=== PATIENT | female | born 1990 | race African-American/Black ===

== ENCOUNTER 2017-03-12 09:15 | Emergency (ER) | payer MEDICAID ==
[~2017-03-12] VITALS: Ht 167.6 cm; Wt 152.0 kg
[2017-03-12 09:42] LABS: APPEARANCE,URINE SLIGHTLY CLOUDY; BILIRUBIN, URINE NEGATIVE (NEGATIVE); COLOR,URINE PALE YELLOW; GLUCOSE, URINE (UA) NEGATIVE (NEGATIVE); KETONES,URINE NEGATIVE (NEGATIVE); LEUKOCYTE ESTERASE ,URINE 1+ (NEGATIVE); NITRITE,URINE NEGATIVE (NEGATIVE); PH,URINE 8 (4.5-8.0); PROTEIN,URINE NEGATIVE (NEGATIVE); UROBILINOGEN,URINE NORMAL MG/DL (0.0-1.0)
[2017-03-12 09:51] VITALS: BP 154/90
[2017-03-12] MEDS ORDERED: Lidocaine 1% MPF 10mg/ml 5ml INJ ONE (10:00)
[2017-03-12] MEDS ORDERED: Azithromycin 250mg tab ORAL ONE (10:00)
[2017-03-12] MEDS ORDERED: NITROFURANTOIN100 M2 ORAL (10:25)
[2017-03-12 10:35] VITALS: BP 154/90
--- NOTE | 2017-03-12 13:04 | Emergency Room Report ---
History of Present Illness General Chief Complaint: Female Urogenital Problems Source: Patient Present Illness HPI 26-year-old female, no significant past medical history, presenting with 2-3 days of vaginal discomfort States she has had tingling sensation, not estolate dysuria or hematuria. Denies vaginal discharge. States that she is monogamous with one partner and does not use protection. No history of STD in the past. No fever no chills no nausea vomiting Allergies: Coded Allergies: No Known Allergies (Unverified , 03/12/17) Patient History Past Medical History: see triage record Past Surgical History: none Pertinent Family History: none Last Menstrual Period: no period over months Reviewed Nursing Documentation: PMH: Agreed, PSxH: Agreed Nursing Documentation-PMH Past Medical History: No Stated History Review of Systems All Other Systems: negative except mentioned in HPI Physical Exam Vital Signs Date Time Temp Pulse Resp B/P (MAP) Pulse Ox O2 Delivery O2 Flow Rate FiO2 03/12/17 09:21 97.9 77 18 154/90 96 Room Air Sp02 EP Interpretation: reviewed, normal General Appearance: normal inspection, well appearing, no apparent distress, alert, GCS 15, non-toxic Head: normocephalic, atraumatic Eyes: bilateral eye normal inspection, bilateral eye PERRL, bilateral eye EOMI ENT: normal ENT inspection, normal pharynx, normal voice, moist mucus membranes Neck: normal inspection, full range of motion, supple Respiratory: normal inspection, lungs clear, normal breath sounds, no respiratory distress, no retraction, no wheezing, speaking full sentences, chest symmetrical Cardiovascular #1: normal inspection, regular rate, rhythm, no edema, normal capillary refill Cardiovascular #2: 2+ radial (R), 2+ radial (L) Gastrointestinal: normal inspection, non tender, soft, non-distended, no guarding Genitourinary: other - thin whtie vaginal DC, no thick DC. slightly erythamteous cervix. no cmt no adnexal tenderness Musculoskeletal: normal inspection, back normal, normal range of motion, non- tender Neurologic: normal inspection, alert, oriented x3, responsive, motor strength/ tone normal, sensory intact, normal gait, speech normal Psychiatric: normal inspection, judgement/insight normal, memory normal Skin: normal inspection, normal color, no rash, warm/dry, well hydrated, normal turgor Medical Decision Making Diagnostic Impression: Primary Impression: Concern about STD in female without diagnosis Additional Impression: UTI (urinary tract infection) ER Course [ ] yo F with dysuria DDX: UTI / cystitis vs. pyelo vs STD Plan: UA, UCX 26-year-old female with vaginal discomfort/tingling UTI/STD Plan UA urine culture ER course: Pt remains stable/nontoxic appearing in ED. UA positive Patient also requesting prophylactic antibiotics for possible STD exposure Disposition: Patient will be discharged home with prescription of antibiotics. Strict return precautions to discussed with patient such as high fever, chills, abdominal pain, nausea or vomiting. Patient verbalized understanding. Patient instructed to follow up with primary care doctor within 3 days. Patient agrees with plan. Patient also instructed to followup with [facility] because she has never had a Pap smear Please note that this Emergency Department Report was dictated using [employer] roll packer technology software, occasionally this can lead to erroneous entry secondary to interpretation by the dictation equipment Last Vital Signs Date Time Temp Pulse Resp B/P (MAP) Pulse Ox O2 Delivery O2 Flow Rate FiO2 03/12/17 10:35 97.9 73 18 154/90 96 Room Air Disposition: HOME, SELF-CARE Condition: Improved Scripts Nitrofurantoin Monohyd/M-Cryst* (MACROBID 100 MG*) 100 Mg Capsule 100 MG ORAL EVERY 12 HOURS for 7 Days, #14 CAP 0 Refills Prov: Bautista Denton M.D. 03/12/17 Referrals: [facility],REFERRING (PCP) Patient Instructions: Urinary Tract Infection, Sexually Transmitted Disease, [id number] Bautista Denton M.D. Mar 12, 2017 13:04
== END 2017-03-12 10:30 | disposition home or self-care (01) ==
LOC: EMR 09:35
DX: N39.0 Urinary tract infection, site not specified (principal); Z20.2 Contact with and (suspected) exposure to infections with a predominantly sexual mode of transmission
CPT/HCPCS: 81001; 81025; 87086; 96372; 99284; J0696; Q0144

== ENCOUNTER 2017-04-10 11:28 | Emergency (ER) | payer MEDICAID ==
[~2017-04-10] VITALS: Ht 170.2 cm; Wt 149.7 kg
[~2017-04-10 11:28] MED LIST: NITROFURANTOIN100 M2 ORAL
[2017-04-10 11:40] VITALS: BP 152/108
--- NOTE | 2017-04-10 12:05 | Emergency Room Report ---
History of Present Illness General Chief Complaint: Upper Respiratory Illness Source: Patient Present Illness HPI 26 yo female patient presents to ER complaining of cough x2weks Reports hx of recent illness, at onset of cough had chills and generalized body aches. Denies flu-like symptoms symptoms currently. Patient reports cough was dry but has become more purulent. Patient reports taking [place] cold/flu, DayQuill, and NyQuill for relief of symptoms. Denies fever, chest pain, SOB, BLACK. Denies abdominal pain, diarrhea, constipation. LMP normal, no vaginal bleeding, no dysuria, no hematuria. Allergies: Coded Allergies: No Known Allergies (Unverified , 03/12/17) Patient History Past Medical History: see triage record Last Menstrual Period: 6 months ago Reviewed Nursing Documentation: PMH: Agreed, PSxH: Agreed Nursing Documentation-PMH Past Medical History: No Stated History Review of Systems All Other Systems: negative except mentioned in HPI Physical Exam Vital Signs Date Time Temp Pulse Resp B/P (MAP) Pulse Ox O2 Delivery O2 Flow Rate FiO2 04/10/17 11:35 98.3 78 14 152/108 97 Room Air 98.2 Sp02 EP Interpretation: reviewed, normal General Appearance: well appearing, no apparent distress, alert, GCS 15, non- toxic Head: normocephalic, atraumatic Eyes: bilateral eye normal inspection, bilateral eye PERRL ENT: hearing grossly normal, normal pharynx, normal voice, TMs + canals normal , uvula midline, moist mucus membranes, pharyngeal erythema Neck: normal inspection, full range of motion, no bony tend Respiratory: normal inspection, lungs clear, normal breath sounds, no rhonchi, no accessory muscle use, no wheezing, speaking full sentences Cardiovascular #1: regular rate, rhythm Musculoskeletal: back normal, digits/nails normal, gait/station normal, normal range of motion Neurologic: alert, oriented x3, responsive, motor strength/tone normal, sensory intact, normal gait Psychiatric: mood/affect normal Skin: no rash Lymphatic: no adenopathy Medical Decision Making PA Attestation Dr. Denton is my supervising Physician whom patient management has been discussed with. Diagnostic Impression: Primary Impression: Upper respiratory infection Additional Impression: Elevated blood pressure reading ER Course Pt presents to ED c/o cough x2 weeks. DDX considered but are not limited to influenza, viral URI, pneumonia, strep throat, rhinitis, sinusitis, otitis media. VITAL SIGNS are WNL, patient is afebrile. Patient informed that blood pressure reading elevated. Patient reports no hx of HTN or cardiovascular disease. Patient instructed to followup with primary care this week for further diagnosis and treatment. Patient reports understanding and agreement to treatment plan. Physical exam benign, lungs clear to auscultation. ORDERS: none required at this time, diagnosis is clinical ED INTERVENTIONS: none required at this time DISCHARGE: At this time pt is stable for d/c to home. Patient is resting comfortably, in no acute distress, nontoxic appearing, smiling, laughing, talking without difficulty. -Promethazine-DM for cough. Patient to take medications as instructed Will provide with patient care instructions and any necessary prescriptions. Care plan and follow-up instructions provided. Patient instructed to follow-up with primary care provider in 3 - 5 days for further treatment and referral for symptoms and elevated blood pressure reading. Patient questions asked and answered. Patient reports understanding and agreement to treatment plan. ER precautions given. Patient instructed to return to ER immediately for any new or worsening of symptoms including but not limited to increasing SOB, persistent fever. Last Vital Signs Date Time Temp Pulse Resp B/P (MAP) Pulse Ox O2 Delivery O2 Flow Rate FiO2 04/10/17 11:40 78 14 Room Air 04/10/17 11:40 98.2 152/108 97 98.2 Disposition: HOME, SELF-CARE Condition: Stable Scripts D-Methorphan Hb/Prometh Hcl* (PROMETHAZINE-DM SYRUP*) 118 Ml Syrup 5 ML ORAL Q6H Y for For Cough for 7 Days, #118 ML 0 Refills Prov: Trip Ring 04/10/17 Patient Instructions: Managing Your High Blood Pressure, Upper Respiratory Infection, Adult Additional Instructions: Followup with primary care provider in 3 -5 days for further treatment and referral. Need to followup with primary care for control of high blood pressure. Take medications as directed. Take Tylenol OTC if fever or pain symptoms return. Patient questions asked and answered. ER precautions given, patient instructed to return to ER immediately for any new or worsening of symptoms. Trip Ring Apr 10, 2017 12:05
[2017-04-10] MEDS ORDERED: PROMETHAZINE-D118 ML ORAL (12:14)
[2017-04-10 12:38] VITALS: BP 119/89
== END 2017-04-10 12:42 | disposition home or self-care (01) ==
LOC: EMR 12:11
DX: J06.9 Acute upper respiratory infection, unspecified (principal); R03.0 Elevated blood-pressure reading, without diagnosis of hypertension
CPT/HCPCS: 99283

== ENCOUNTER 2017-12-06 12:15 | Emergency (ER) | payer MEDICAID ==
[~2017-12-06] VITALS: Ht 167.6 cm; Wt 156.5 kg
[~2017-12-06 12:15] MED LIST changes: +PROMETHAZINE-D118 ML ORAL
[2017-12-06 12:22] VITALS: BP 132/78
[2017-12-06] MEDS ORDERED: Fluconazole 100mg tab ORAL ONE (12:45)
[2017-12-06 12:49] LABS: APPEARANCE,URINE CLEAR; BILIRUBIN, URINE NEGATIVE (NEGATIVE); GLUCOSE, URINE (UA) NEGATIVE (NEGATIVE); KETONES,URINE NEGATIVE (NEGATIVE); NITRITE,URINE NEGATIVE (NEGATIVE); PH,URINE 7 (4.5-8.0); PROTEIN,URINE NEGATIVE (NEGATIVE); UROBILINOGEN,URINE 1 MG/DL (0.0-1.0)
[2017-12-06 12:51] LABS: LEUKOCYTE ESTERASE ,URINE 1+ (NEGATIVE)
[2017-12-06 12:58] LABS: COLOR,URINE YELLOW
[2017-12-06] MEDS ORDERED: FLUCONAZOLE100 MG ORAL (13:03)
--- NOTE | 2017-12-06 13:03 | Emergency Room Report ---
History of Present Illness General Chief Complaint: Vaginal Source: Patient Present Illness HPI 27-year-old female presents to the emergency department complaining of thick white vaginal discharge with itching and dysuria 3 days. Patient reports that she just recently finished a course of antibiotics for bacterial vaginosis. Patient states that she had STD testing performed by her HOTEL DESK CLERK and was told she was negative. Patient denies recent unprotected intercourse. Patient denies fevers, chills, abdominal pain, nausea or vomiting. He denies swollen tender lymph nodes, joint pain or genital lesions. Pt. is requesting tx for yeast. Allergies: Coded Allergies: No Known Allergies (Unverified , 03/12/17) Patient History Past Medical History: see triage record Past Surgical History: none Pertinent Family History: none Last Menstrual Period: 1 yr ago Now: No Reviewed Nursing Documentation: PMH: Agreed; PSxH: Agreed Nursing Documentation-PMH Past Medical History: No Stated History Review of Systems All Other Systems: negative except mentioned in HPI Physical Exam Vital Signs Date Time Temp Pulse Resp B/P (MAP) Pulse Ox O2 Delivery O2 Flow Rate FiO2 12/06/17 12:22 98.2 75 18 153/99 100 Room Air Sp02 EP Interpretation: reviewed, normal General Appearance: no apparent distress, alert, GCS 15, non-toxic Head: normocephalic, atraumatic Eyes: bilateral eye normal inspection, bilateral eye PERRL ENT: hearing grossly normal, normal voice Neck: full range of motion Respiratory: lungs clear, normal breath sounds, speaking full sentences Cardiovascular #1: regular rate, rhythm Gastrointestinal: normal bowel sounds, non tender, soft Rectal: deferred Genitourinary: normal inspection, no CVA tenderness, deferred - wet mount/ pelvic deferred by pt. Musculoskeletal: back normal, gait/station normal, normal range of motion, non- tender Neurologic: alert, oriented x3, responsive, motor strength/tone normal, sensory intact, speech normal, grossly normal Psychiatric: judgement/insight normal Skin: normal color, no rash, warm/dry, well hydrated Medical Decision Making PA Attestation Dr. Zhao is my supervising Physician whom patient management has been discussed with. Diagnostic Impression: Primary Impression: Vaginitis and vulvovaginitis ER Course 27-year-old female presents to the emergency department complaining of thick white vaginal discharge with itching and dysuria 3 days. Patient reports that she just recently finished a course of antibiotics for bacterial vaginosis. Patient states that she had STD testing performed by her HOTEL DESK CLERK and was told she was negative. Patient denies recent unprotected intercourse. Patient denies fevers, chills, abdominal pain, nausea or vomiting. He denies swollen tender lymph nodes, joint pain or genital lesions. Pt. is requesting tx for yeast. Ddx considered but are not limited to UTi , Pyelo, STI, Stone, Cystitis, vaginal laceration, vaginitis. Vital signs: are WNL, pt. is afebrile H& PE are most consistent with: Vaginitis ORDERS: - UA labs are attached and are unremarkable- - Wet Mount :deferred due to recent abx use and recent wet mount and no unprotected intercourse between. ED INTERVENTIONS: -Diflucan PO DISCHARGE: At this time pt. is stable for d/c to home. Will provide printed patient care instructions, and any necessary prescriptions. Care plan and follow up instructions have been discussed with the patient prior to discharge. discussed with the patient prior to discharge. Labs Test 12/06/17 12:30 Urine Color Yellow Urine Appearance Clear Urine pH 7 (4.5-8.0) Urine Specific [place] 1.010 (1.005-1.035) Urine Protein Negative (NEGATIVE) Urine Glucose (UA) Negative (NEGATIVE) Urine Ketones Negative (NEGATIVE) Urine Blood Negative (NEGATIVE) Urine Nitrite Negative (NEGATIVE) Urine Bilirubin Negative (NEGATIVE) Urine Urobilinogen 1 MG/DL (0.0-1.0) Urine Leukocyte Esterase 1+ (NEGATIVE) Urine RBC 0 /HPF (0 - 2) Urine WBC 0-2 /HPF (0 - 2) Urine Squamous Epithelial Cells Few /LPF (NONE/OCC) Urine Bacteria Few /HPF (NONE) Last Vital Signs Date Time Temp Pulse Resp B/P (MAP) Pulse Ox O2 Delivery O2 Flow Rate FiO2 12/06/17 12:22 98.6 78 20 132/78 99 Room Air Disposition: HOME, SELF-CARE Condition: Stable Scripts Fluconazole (FLUCONAZOLE) 100 Mg Tablet 100 MG ORAL DAILY, #3 TAB 0 Refills Prov: Nelida Montgomery 12/06/17 Patient Instructions: Vaginitis, [id number] Additional Instructions: Take medications as directed. Follow up with a Primary Care Provider in 3-5 days, even if your symptoms have resolved. --Please review list of primary care clinics, if you do not already have a primary care provider Return sooner to ED if new symptoms occur, or current symptoms become worse. - Please note that this Emergency Department Report was dictated using [employer] agent technology software, occasionally this can lead to erroneous entry secondary to interpretation by the dictation equipment. Nelida Montgomery Dec 06, 2017 13:03
[2017-12-06 13:31] VITALS: BP 132/78
== END 2017-12-06 13:31 | disposition home or self-care (01) ==
LOC: EMR 13:29
DX: N76.0 Acute vaginitis (principal)
CPT/HCPCS: 81003; 99283

== ENCOUNTER 2018-01-12 19:10 | Emergency (ER) | payer MEDICAID ==
[~2018-01-12] VITALS: Ht 170.2 cm; Wt 154.2 kg
[~2018-01-12 19:10] MED LIST changes: +FLUCONAZOLE100 MG ORAL
[2018-01-12 19:40] VITALS: BP 138/90
[2018-01-12] MEDS ORDERED: NKM (19:40)
[2018-01-12 19:55] LABS: APPEARANCE,URINE CLEAR; BILIRUBIN, URINE NEGATIVE (NEGATIVE); GLUCOSE, URINE (UA) NEGATIVE (NEGATIVE); KETONES,URINE NEGATIVE (NEGATIVE); LEUKOCYTE ESTERASE ,URINE 1+ (NEGATIVE); NITRITE,URINE NEGATIVE (NEGATIVE); PH,URINE 5 (4.5-8.0); PROTEIN,URINE NEGATIVE (NEGATIVE); UROBILINOGEN,URINE 4 MG/DL (0.0-1.0)
[2018-01-12 19:58] LABS: COLOR,URINE YELLOW
[2018-01-12] MEDS ORDERED: DIFLUCAN150 MG PO (20:37)
[2018-01-12] MEDS ORDERED: METRONIDAZOLE500 MG ORAL (20:37)
--- NOTE | 2018-01-12 20:49 | Emergency Room Report ---
History of Present Illness General Chief Complaint: Vaginal Source: Patient Present Illness [facility] The patient is a 27-year-old female presenting for 3 days of white vaginal discharge. She also admits to some vaginal itching. She has had BV in the past and this feels the same. She denies any new sexual partners. She denies other symptoms including nausea, vomiting, fever, chills, back pain, abdominal pain, dysuria, hematuria Allergies: Coded Allergies: No Known Allergies (Unverified , 03/12/17) Patient History Past Medical History: see triage record Pertinent Family History: none Last Menstrual Period: 2017 Now: No - pt stated that she has an irregular period. Reviewed Nursing Documentation: PMH: Agreed; PSxH: Agreed Nursing Documentation-PMH Past Medical History: No Stated History Review of Systems All Other Systems: negative except mentioned in HPI Physical Exam Vital Signs Date Time Temp Pulse Resp B/P (MAP) Pulse Ox O2 Delivery O2 Flow Rate FiO2 01/12/18 19:35 99.3 96 16 138/90 98 Room Air Sp02 EP Interpretation: reviewed, normal General Appearance: no apparent distress, alert, GCS 15, non-toxic Head: normocephalic, atraumatic Respiratory: chest non-tender, lungs clear, normal breath sounds, speaking full sentences Cardiovascular #1: regular rate, rhythm, no edema Gastrointestinal: normal bowel sounds, non tender, soft, non-distended, no guarding, no rebound Genitourinary: normal inspection, no CVA tenderness Skin: normal color, no rash, warm/dry, well hydrated Medical Decision Making PA Attestation Dr. Pedro is my supervising physician. Patient management was discussed with my supervising physician Diagnostic Impression: Primary Impression: BV (bacterial vaginosis) ER Course The patient is a 27-year-old female presenting for 3 days of white vaginal discharge. Differential diagnosis considered but not limited to: UTI, vaginitis, pyelonephritis, pyelonephrosis, PID, ectopic PE: Vitals WNL. NAD. Abdomen: Normal appearance. Non distended. No ecchymosis. Normal BS. Non TTP. No McBurney point tenderness. No guarding. No CVA tenderness UA unremarkable. Neg preg Pt will be DC'ed home with prescription for flagyl and will FU with PMD. She states she often gets yeast infection after abx and is given one dose of Diflucan to be used only if symptoms develop. ER precautions given Laboratory Tests Test 01/12/18 19:45 Urine Color Yellow Urine Appearance Clear Urine pH 5 (4.5-8.0) Urine Specific [place] 1.020 (1.005-1.035) Urine Protein Negative (NEGATIVE) Urine Glucose (UA) Negative (NEGATIVE) Urine Ketones Negative (NEGATIVE) Urine Blood 1+ (NEGATIVE) H Urine Nitrite Negative (NEGATIVE) Urine Bilirubin Negative (NEGATIVE) Urine Urobilinogen 4 MG/DL (0.0-1.0) H Urine Leukocyte Esterase 1+ (NEGATIVE) H Urine RBC 2-4 /HPF (0 - 2) H Urine WBC 2-4 /HPF (0 - 2) Urine Squamous Epithelial Cells Few /LPF (NONE/OCC) Urine Bacteria Few /HPF (NONE) Urine HCG, Qualitative Negative (NEGATIVE) Lab Results Impression 1+ leuk esterase and few bacteria Last Vital Signs Date Time Temp Pulse Resp B/P (MAP) Pulse Ox O2 Delivery O2 Flow Rate FiO2 01/12/18 19:40 99.3 96 16 138/90 98 Room Air Status: improved Disposition: HOME, SELF-CARE Condition: Improved Scripts Fluconazole (DIFLUCAN) 150 Mg Tablet 150 MG PO DAILY, #1 TAB Prov: BERENICE PEDROZA P.A. 01/12/18 Metronidazole* (FLAGYL*) 500 Mg Tablet 500 MG ORAL BID, #14 TAB 0 Refills Prov: BERENICE PEDROZA P.A. 01/12/18 Patient Instructions: Bacterial Vaginosis Additional Instructions: I discussed my findings with the patient. All questions and concerns have been answered. Treatment and medication compliance have been addressed. I advised the patient that they need to follow up with PMD in 3-5 days. Return to ED if symptoms worsen, new symptoms arise, or if needed for any reason. Patient verbalized understanding of discharge instructions. BERENICE PEDROZA Jan 12, 2018 20:49
[2018-01-12 21:01] VITALS: BP 0/0
== END 2018-01-12 21:00 | disposition home or self-care (01) ==
LOC: EMR 20:10
DX: N76.0 Acute vaginitis (principal)
CPT/HCPCS: 81003; 81025; 99283

== ENCOUNTER 2018-03-06 08:12 | Emergency (ER) | payer MEDICAID ==
[~2018-03-06] VITALS: Ht 170.2 cm; Wt 154.2 kg
[~2018-03-06 08:12] MED LIST changes: +DIFLUCAN150 MG PO; +METRONIDAZOLE500 MG ORAL; +NKM
[2018-03-06 08:14] VITALS: BP 148/89
--- NOTE | 2018-03-06 08:38 | Emergency Room Report ---
History of Present Illness General Chief Complaint: Female Urogenital Problems Source: Patient Present Illness HPI This patient states that for the past day she has noticed some increase in her vaginal discharge. She states she also has developed some itching and a little bit of irritation today. She states she thinks she may have a yeast infection. She states she is sexually active but is monogamous. She states she did get a pelvic exam within the last month and was tested at that time for sexually transmitted diseases and was negative. She states she has irregular menses and so does not use control. She states she has not had a menses for 1 year. She does not believe she is capable of getting . She denies fever or chills. She denies pelvic pain. She denies dysuria or hematuria. She has no other complaints. Allergies: Coded Allergies: No Known Allergies (Unverified , 03/12/17) Patient History Past Medical History: none Social History: Denies: smoking, alcohol use, drug use Last Menstrual Period: 01/27/18 Now: No Reviewed Nursing Documentation: PMH: Agreed; PSxH: Agreed Nursing Documentation-PMH Past Medical History: No Stated History Review of Systems All Other Systems: negative except mentioned in HPI Physical Exam Vital Signs Date Time Temp Pulse Resp B/P (MAP) Pulse Ox O2 Delivery O2 Flow Rate FiO2 03/06/18 08:14 97.3 77 148/89 95 Room Air Sp02 EP Interpretation: reviewed, normal General Appearance: no apparent distress, alert, GCS 15, non-toxic, obese Head: normocephalic, atraumatic Eyes: bilateral eye normal inspection, bilateral eye PERRL ENT: hearing grossly normal, normal pharynx, no angioedema, normal voice Neck: full range of motion, supple/symm/no masses Respiratory: no respiratory distress, no retraction, no accessory muscle use, speaking full sentences Gastrointestinal: normal bowel sounds, non tender, soft, non-distended, no guarding, no rebound Rectal: deferred Genitourinary: adnexa normal, cervix normal, ext genitalia/vag normal, other - thick white discharge Musculoskeletal: back normal, gait/station normal, normal range of motion, non- tender Neurologic: alert, oriented x3, responsive, motor strength/tone normal, sensory intact, speech normal Psychiatric: judgement/insight normal, memory normal, mood/affect normal, no suicidal/homicidal ideation Skin: normal color, no rash, warm/dry, well hydrated Medical Decision Making Diagnostic Impression: Primary Impression: Candidal vaginitis ER Course This patient has pelvic exam findings consistent with candidal vaginitis. The discharge visualized on exam is consistent with this. The patient's cervix was normal without cervical motion tenderness. There were no findings on pelvic or abdominal exam that would make me concerned for PID. Further, the patient is low risk for STD. I will treat the patient with oral fluconazole. The patient was educated that this would not replace a full pelvic exam to include Pap smear. She indicated understanding. The patient is given close return precautions about instructions. Laboratory Tests Test 03/06/18 08:30 Urine HCG, Qualitative Negative (NEGATIVE) Last Vital Signs Date Time Temp Pulse Resp B/P (MAP) Pulse Ox O2 Delivery O2 Flow Rate FiO2 03/06/18 08:14 97.3 77 148/89 95 Room Air Status: improved Disposition: HOME, SELF-CARE Condition: Improved Patient Instructions: Vaginal Yeast Infection, Adult Amrita Steele DO Mar 06, 2018 08:38
--- NOTE | 2018-03-06 08:40 | NUR ---
ED Nurse Note: Urine specimen sent.
--- NOTE | 2018-03-06 08:49 | NUR ---
ED Nurse Note: Pt came due to increased vaginal discharge and irritation x 1 day. No fever and denies . Pt AAO x4, ambulates with steady gait.
[2018-03-06] MEDS ORDERED: DIFLUCAN150 MG PO ×2 (09:21)
--- NOTE | 2018-03-06 09:21 | NUR ---
ED Nurse Note: Wet Mount Prep sent to lab.
[2018-03-06 09:28] VITALS: BP 149/85
--- NOTE | 2018-03-06 09:28 | NUR ---
ED Nurse Note: Pt cleared by health care provider for discharge. ACI given and explained to pt and verbalized understanding. All medical devices such as ID band removed. Pt left with all personal belongings. Pt is AAO x4 and ambulates with steady gait.
== END 2018-03-06 09:28 | disposition home or self-care (01) ==
LOC: EMR 08:32
DX: B37.3 Candidiasis of vulva and vagina (principal)
CPT/HCPCS: 81025; 87210; 99283

== ENCOUNTER 2018-08-20 12:58 | Emergency (ER) | payer MEDICAID ==
[~2018-08-20] VITALS: Ht 170.2 cm; Wt 147.4 kg
[2018-08-20 13:03] VITALS: BP 124/86
[2018-08-20 13:36] LABS: APPEARANCE,URINE CLEAR; BILIRUBIN, URINE NEGATIVE (NEGATIVE); COLOR,URINE YELLOW; GLUCOSE, URINE (UA) NEGATIVE (NEGATIVE); KETONES,URINE NEGATIVE (NEGATIVE); LEUKOCYTE ESTERASE ,URINE 3+ (NEGATIVE); NITRITE,URINE NEGATIVE (NEGATIVE); PH,URINE 6.5 (4.5-8.0); PROTEIN,URINE NEGATIVE (NEGATIVE); UROBILINOGEN,URINE 1 MG/DL (0.0-1.0)
--- NOTE | 2018-08-20 13:56 | Emergency Room Report ---
History of Present Illness General Chief Complaint: Female Urogenital Problems Source: Patient Present Illness HPI 28-year-old female presents to the emergency department complaining of yellowish -white vaginal discharge with 5 out of 10 severity burning/itchy sensation since last night. Patient denies fevers, chills, joint pain or suspicion of . Patient denies history of STIs she denies recent unprotected intercourse and denies suspicion for STI. Denies swollen tender lymph nodes or joint pain. Pt. denies hematuria, frequency or urgency. She reports some dysuria. Patient reports previous history of yeast and BV in the past. Patient denies recent antibiotic use. She denies any aggravating or relieving factors. Allergies: Coded Allergies: No Known Allergies (Unverified , 03/12/17) Patient History Past Medical History: see triage record Past Surgical History: none Pertinent Family History: none Last Menstrual Period: 07/29/18 Now: No Reviewed Nursing Documentation: PMH: Agreed; PSxH: Agreed Nursing Documentation-PMH Past Medical History: No Stated History Review of Systems All Other Systems: negative except mentioned in HPI Physical Exam Vital Signs Date Time Temp Pulse Resp B/P (MAP) Pulse Ox O2 Delivery O2 Flow Rate FiO2 08/20/18 13:03 98.1 70 15 124/86 (99) 98 Room Air Medical Decision Making PA Attestation Dr. Grove is my supervising physician whom pt. management has been discussed with. Diagnostic Impression: Primary Impression: UTI (urinary tract infection) Qualified Codes: N30.01 - Acute cystitis with hematuria ER Course 28-year-old female presents to the emergency department complaining of yellowish -white vaginal discharge with 5 out of 10 severity burning/itchy sensation since last night. Patient denies fevers, chills, joint pain or suspicion of . Patient denies history of STIs she denies recent unprotected intercourse and denies suspicion for STI. Denies swollen tender lymph nodes or joint pain. Pt. denies hematuria, frequency or urgency. She reports some dysuria. Patient reports previous history of yeast and BV in the past. Patient denies recent antibiotic use. She denies any aggravating or relieving factors. Ddx considered but are not limited to UTi , Pyelo, STI, Stone, Cystitis, vaginal laceration, vaginitis. Vital signs: are WNL, pt. is afebrile H& PE are most consistent with: Vaginitis ORDERS: - UA labs are attached -- Positive for UTI, many bacteria and elevated inflammatory markers. -Urine Hcg: negative - [place] : moderate wbc's only ED INTERVENTIONS: -none DISCHARGE: At this time pt. is stable for d/c to home. Will provide printed patient care instructions, and any necessary prescriptions. Care plan and follow up instructions have been discussed with the patient prior to discharge. discussed with the patient prior to discharge. Labs Test 08/20/18 13:14 Urine Color Yellow Urine Appearance Clear Urine pH 6.5 (4.5-8.0) Urine Specific [place] 1.015 (1.005-1.035) Urine Protein Negative (NEGATIVE) Urine Glucose (UA) Negative (NEGATIVE) Urine Ketones Negative (NEGATIVE) Urine Blood Negative (NEGATIVE) Urine Nitrite Negative (NEGATIVE) Urine Bilirubin Negative (NEGATIVE) Urine Urobilinogen 1 MG/DL (0.0-1.0) Urine Leukocyte Esterase 3+ (NEGATIVE) Urine RBC 2-4 /HPF (0 - 2) Urine WBC Tntc /HPF (0 - 2) Urine Squamous Epithelial Cells Many /LPF (NONE/OCC) Urine Bacteria Moderate /HPF (NONE) Urine HCG, Qualitative Negative (NEGATIVE) Last Vital Signs Date Time Temp Pulse Resp B/P (MAP) Pulse Ox O2 Delivery O2 Flow Rate FiO2 08/20/18 13:03 98.1 70 15 124/86 (99) 98 Room Air Status: improved Disposition: HOME, SELF-CARE Condition: Stable Scripts Fluconazole (FLUCONAZOLE) 100 Mg Tablet 100 MG ORAL DAILY for 3 Days, #3 TAB 0 Refills Prov: Nelida Montgomery 08/20/18 Nitrofurantoin Monohyd/M-Cryst* (MACROBID 100 MG*) 100 Mg Capsule 100 MG ORAL EVERY 12 HOURS for 5 Days, #10 CAP Prov: Nelida Montgomery 08/20/18 Referrals: [facility],REFERRING (PCP) Patient Instructions: Vaginitis, Urinary Tract Infection Additional Instructions: Take medications as directed. Follow up with a Primary Care Provider in 3-5 days, even if your symptoms have resolved. --Please review list of primary care clinics, if you do not already have a primary care provider Return sooner to ED if new symptoms occur, or current symptoms become worse. - Please note that this Emergency Department Report was dictated using Dragon cpa tax technology software, occasionally this can lead to erroneous entry secondary to interpretation by the dictation equipment. Nelida Montgomery Aug 20, 2018 13:56
--- NOTE | 2018-08-20 14:01 | NUR ---
ED Nurse Note: WET M[place] PREP SPECIMEN SENT.
[2018-08-20] MEDS ORDERED: NITROFURANTOIN100 M2 ORAL (15:05)
[2018-08-20] MEDS ORDERED: FLUCONAZOLE100 MG ORAL (15:05)
[2018-08-20 15:09] VITALS: BP 136/70
--- NOTE | 2018-08-20 15:09 | NUR ---
ER DISCHARGE NOTE: Pt was seen due to vaginal discharge and irritation. Patient is cleared to be discharged per PA, pt is aox4, on room air, with stable vital signs. pt was given dc and prescription instructions, pt was able to verbalize understanding, pt id band removed without complications. pt is able to ambulate with steady gait. pt took all belongings.
== END 2018-08-20 15:09 | disposition home or self-care (01) ==
LOC: EMR 13:45
DX: N30.01 Acute cystitis with hematuria (principal)
CPT/HCPCS: 81003; 81025; 87086; 87210; 99283

== ENCOUNTER 2018-09-15 17:15 | Emergency (ER) | payer MEDICAID ==
[~2018-09-15] VITALS: Ht 167.6 cm; Wt 147.4 kg
[2018-09-15 17:30] VITALS: BP 129/81
--- NOTE | 2018-09-15 17:30 | NUR ---
ED Nurse Note: Patient ambulated in to ER c/o white and thick vaginal discharge for 3 days. pt aao x4 and ambulatory. skin clean and intact. pt reported that she had unprotected intercourse 2 weeks ago. no acute distress noted.
[2018-09-15 18:13] LABS: APPEARANCE,URINE SLIGHTLY CLOUDY; BILIRUBIN, URINE NEGATIVE (NEGATIVE); GLUCOSE, URINE (UA) NEGATIVE (NEGATIVE); KETONES,URINE NEGATIVE (NEGATIVE); LEUKOCYTE ESTERASE ,URINE 1+ (NEGATIVE); NITRITE,URINE NEGATIVE (NEGATIVE); PH,URINE 7 (4.5-8.0); PROTEIN,URINE 1+ (NEGATIVE); UROBILINOGEN,URINE 4 MG/DL (0.0-1.0)
[2018-09-15 18:31] LABS: COLOR,URINE YELLOW
--- NOTE | 2018-09-15 19:00 | NUR ---
HAND-OFF: Report given to DESI Davila. Urine sample has sent to lab. no orders to carry at this moment.
--- NOTE | 2018-09-15 19:35 | NUR ---
ED Nurse Note: Pelvic exam done by BETH Mayes, with this nurse in attendance; pt tolerated well. No specs obtained.
[2018-09-15] MEDS ORDERED: DIFLUCAN150 MG PO (19:49)
[2018-09-15] MEDS ORDERED: METRONIDAZOLE500 MG ORAL (19:49)
[2018-09-15 19:55] VITALS: BP 129/81
--- NOTE | 2018-09-15 21:38 | Emergency Room Report ---
History of Present Illness General Chief Complaint: Female Urogenital Problems Source: Patient Present Illness HPI Patient is a 28-year-old female presenting for white vaginal discharge for the past 3 days. She has been seen in this emergency department many times for the same complaint. She has not been able to see her primary doctor or BIOLOGICAL CHEMIST as she was informed. Discharge is described as thin and white. She admits to vaginal irritation. She denies other symptoms including dysuria, hematuria, odor, abdominal pain, back pain, fever, chills Allergies: Coded Allergies: No Known Allergies (Unverified , 03/12/17) Patient History Past Medical History: see triage record Pertinent Family History: none Last Menstrual Period: july 2018 Now: No Reviewed Nursing Documentation: PMH: Agreed; PSxH: Agreed Nursing Documentation-PMH Past Medical History: No Stated History Review of Systems All Other Systems: negative except mentioned in HPI Physical Exam Vital Signs Date Time Temp Pulse Resp B/P (MAP) Pulse Ox O2 Delivery O2 Flow Rate FiO2 09/15/18 17:28 98.8 79 16 129/81 (97) 96 Room Air Sp02 EP Interpretation: reviewed, normal General Appearance: no apparent distress, alert, GCS 15, non-toxic Respiratory: chest non-tender, lungs clear, normal breath sounds, speaking full sentences Cardiovascular #1: regular rate, rhythm, no edema Genitourinary: no CVA tenderness, adnexa normal, cervix normal, urethra normal , other - thin white vaginal DC Musculoskeletal: back normal, gait/station normal, normal range of motion Neurologic: alert, oriented x3, responsive Psychiatric: judgement/insight normal, memory normal, mood/affect normal, no suicidal/homicidal ideation Skin: no rash, normal inspection Medical Decision Making PA Attestation Dr. Foote is my supervising physician. Patient management was discussed with my supervising physician Diagnostic Impression: Primary Impression: BV (bacterial vaginosis) ER Course Patient is a 28-year-old female presenting for white vaginal discharge for the past 3 days Differential diagnosis considered but not limited to: UTI, vaginitis, pyelonephritis, pyelonephrosis, PID, ectopic PE: Vitals WNL. NAD. Abdomen: Normal appearance. Non distended. No ecchymosis. Normal BS. Non TTP. No McBurney point tenderness. No guarding. No CVA tenderness Community Services Officer: Exam performed with female nurse Lola in room. Thin vaginal discharge noted. No CMT. no bleeding. UA shows many squamous cells and bacteria. Negative nitrite. Neg preg Pt will be DC'ed home with prescription for flagyl and will FU with PMD. She is told she needs to see OBGYN urgently. She is told that she needs to follow-up with BIOLOGICAL CHEMIST as has been discussed before. She states that she has new insurance and will call tomorrow. She is given one diflucan for future use after BV has been treated. ER precautions given Laboratory Tests Test 09/15/18 17:50 Urine Color Yellow Urine Appearance Slightly cloudy Urine pH 7 (4.5-8.0) Urine Specific [place] 1.010 (1.005-1.035) Urine Protein 1+ (NEGATIVE) H Urine Glucose (UA) Negative (NEGATIVE) Urine Ketones Negative (NEGATIVE) Urine Blood Negative (NEGATIVE) Urine Nitrite Negative (NEGATIVE) Urine Bilirubin Negative (NEGATIVE) Urine Urobilinogen 4 MG/DL (0.0-1.0) H Urine Leukocyte Esterase 1+ (NEGATIVE) H Urine RBC 0-2 /HPF (0 - 2) Urine WBC 5-10 /HPF (0 - 2) H Urine Squamous Epithelial Cells Many /LPF (NONE/OCC) H Urine Amorphous Sediment Few /LPF (NONE) H Urine Bacteria Many /HPF (NONE) H Urine HCG, Qualitative Negative (NEGATIVE) Lab Results Impression UA shows many squamous cells and bacteria. Negative nitrite. Neg preg Last Vital Signs Date Time Temp Pulse Resp B/P (MAP) Pulse Ox O2 Delivery O2 Flow Rate FiO2 09/15/18 19:55 98.8 62 16 129/81 96 Room Air Status: improved Disposition: HOME, SELF-CARE Condition: Improved Scripts Fluconazole (DIFLUCAN) 150 Mg Tablet 150 MG PO DAILY, #1 TAB Prov: TERZIAN,BERENICE P.A. 09/15/18 Metronidazole* (FLAGYL*) 500 Mg Tablet 500 MG ORAL BID, #21 TAB 0 Refills Prov: TERZIAN,BERENICE P.A. 09/15/18 Referrals: [facility],REFERRING (PCP) Patient Instructions: Vaginitis Additional Instructions: I discussed my findings with the patient. All questions and concerns have been answered. Treatment and medication compliance have been addressed. I advised the patient that they need to follow up with PMD in 3-5 days. Return to ED if symptoms worsen, new symptoms arise, or if needed for any reason. Patient verbalized understanding of discharge instructions. BERENICE PEDROZA Sep 15, 2018 21:38
== END 2018-09-15 19:55 | disposition home or self-care (01) ==
LOC: EMR 17:54
DX: N76.0 Acute vaginitis (principal)
CPT/HCPCS: 81003; 81025; 87086; 99283

== ENCOUNTER 2018-10-08 23:29 | Emergency (ER) | payer MEDICAID ==
[~2018-10-08] VITALS: Ht 170.2 cm; Wt 149.2 kg
[2018-10-08 23:45] VITALS: BP 145/100
--- NOTE | 2018-10-08 23:45 | NUR ---
ER Nurse Note: Pt walked in c/o being bite by an insect and noticed a rash on LT lower leg. Pt stated diffused pain, skin intact, localized redness around the site. No puss, fever. Will continue to montior.
[2018-10-09] MEDS ORDERED: BACTRIM DS TAB1 EAC1 ORAL (00:12)
--- NOTE | 2018-10-09 00:12 | Emergency Room Report ---
History of Present Illness General Chief Complaint: Animal Bite Source: Patient Present Illness HPI This is a 28-year-old female with no past medical history. She presents chief complaint of animal bite to left leg. She woke up with redness to the left lower extremity. She said her friend at the same thing. It was itchy. Now swelling is worse. Pain is 5 out of 10. No nausea no vomiting but no drainage. Denies any other complaint. Allergies: Coded Allergies: No Known Allergies (Unverified , 03/12/17) Patient History Past Medical History: see triage record, old chart reviewed Past Surgical History: none Pertinent Family History: none Social History: Denies: smoking Last Menstrual Period: 09/03/18 Now: No Immunizations: other Reviewed Nursing Documentation: PMH: Agreed; PSxH: Agreed Nursing Documentation-PMH Past Medical History: No Stated History Review of Systems Eye: Denies: eye pain, blurred vision ENT: Denies: ear pain, nose congestion, throat swelling Respiratory: Denies: cough, shortness of breath Cardiovascular: Denies: chest pain, palpitations Gastrointestinal: Denies: abdominal pain, diarrhea, nausea, vomiting Musculoskeletal: Denies: back pain, joint pain Skin: Denies: rash Neurological: Denies: headache, numbness Endocrine: Denies: increased thirst, increased urine Hematologic/Lymphatic: Denies: easy bruising All Other Systems: negative except mentioned in HPI Physical Exam Vital Signs Date Time Temp Pulse Resp B/P (MAP) Pulse Ox O2 Delivery O2 Flow Rate FiO2 10/08/18 23:39 98.4 79 15 145/100 (115) 100 Room Air Vitals with high blood pressure Sp02 EP Interpretation: reviewed, normal General Appearance: well appearing, no apparent distress, alert Head: normocephalic, atraumatic Eyes: bilateral eye PERRL, bilateral eye EOMI ENT: hearing grossly normal, normal pharynx Neck: full range of motion, supple, no meningismus Respiratory: chest non-tender, lungs clear, normal breath sounds Cardiovascular #1: regular rate, rhythm, no murmur Gastrointestinal: normal bowel sounds, non tender, no mass, no organomegaly, no bruit, non-distended Musculoskeletal: back normal, gait/station normal, normal range of motion, other - Left lower extremity: On the lateral aspect of her lower leg, there is an area of erythema of 4 cm. No fluctuant. No drainage. Neurologic: alert, oriented x3 Psychiatric: mood/affect normal Medical Decision Making Diagnostic Impression: Primary Impression: Insect bite Qualified Codes: S80.862A - Insect bite (nonvenomous), left lower leg, initial encounter; W57.XXXA - Bitten or stung by nonvenomous insect and other nonvenomous arthropods, initial encounter Additional Impression: Cellulitis Qualified Codes: L03.116 - Cellulitis of left lower limb ER Course Presents with lower extremity cellulitis. May also have from an insect bite. Will discharge home. No necrotizing fasciitis. No abscess. Last Vital Signs Date Time Temp Pulse Resp B/P (MAP) Pulse Ox O2 Delivery O2 Flow Rate FiO2 10/08/18 23:39 98.4 79 15 145/100 (115) 100 Room Air Status: improved Disposition: HOME, SELF-CARE Condition: Stable Scripts Trimethoprim/Sulfamethoxazole 160/800* (BACTRIM DS TABLET*) 1 Each Tablet 1 TAB ORAL Q12H, #14 TAB 0 Refills Prov: Nickolas Looney MD 10/09/18 Referrals: [facility],REFERRING (PCP) Additional Instructions: Keep wound clean. Clean with hydrogen peroxide first and then apply antibiotic ointment. Follow-up with your doctor in 7 days for recheck. Return if symptoms worsen. Nickolas Looney MD Oct 09, 2018 00:12
[2018-10-09] MEDS ORDERED: Bactrim-DS 1 tab ORAL ONE (00:15)
[2018-10-09 00:25] VITALS: BP 145/100
--- NOTE | 2018-10-09 00:25 | NUR ---
ER Nurse Note: Pt seen, treated, medically cleared for discharge by ERMD. Discharge instuctions and prescriptions given with repeat verbalization by pt. Emphasized to follow up with primay care provider; take whole course of medication. Explained each medication. All orders completed per ERMD orders. Pt a&ox4, VSS, no signs of distress. ID band removed. All questions answered per pt's questions. Pt left with all belongings, left with own transportation.
== END 2018-10-09 00:25 | disposition home or self-care (01) ==
LOC: EMR 23:50
DX: S80.862A Insect bite (nonvenomous), left lower leg, initial encounter (principal); L03.116 Cellulitis of left lower limb; W57.XXXA Bitten or stung by nonvenomous insect and other nonvenomous arthropods, initial encounter; Y92.9 Unspecified place or not applicable
CPT/HCPCS: 99282

== ENCOUNTER 2018-10-23 01:17 | Emergency (ER) | payer MEDICAID ==
[~2018-10-23] VITALS: Ht 170.2 cm; Wt 149.7 kg
[~2018-10-23 01:17] MED LIST changes: +BACTRIM DS TAB1 EAC1 ORAL
[2018-10-23 01:30] VITALS: BP 149/101
--- NOTE | 2018-10-23 01:30 | NUR ---
ED Nurse Note: Pt ambulated to ED from home c/o white, thick vaginal discharge for several days. VSS
[2018-10-23] MEDS ORDERED: NKM (01:33)
--- NOTE | 2018-10-23 02:07 | Emergency Room Report ---
History of Present Illness General Chief Complaint: Vaginal Source: Patient Present Illness HPI 28-year-old female with discharge x1 day no aggravating alleviating factors, patient with no vaginal pain patient states there is a clearish discharge, no fevers chills chest pain shortness of breath last STD test was 6 months ago which was negative, patient has no new partners, patient only uses protection during sex Allergies: Coded Allergies: No Known Allergies (Unverified , 03/12/17) Patient History Past Medical History: see triage record Last Menstrual Period: 09/10/18 Now: No Reviewed Nursing Documentation: PMH: Agreed; PSxH: Agreed Nursing Documentation-PMH Past Medical History: No Stated History Review of Systems All Other Systems: negative except mentioned in HPI Physical Exam Vital Signs Date Time Temp Pulse Resp B/P (MAP) Pulse Ox O2 Delivery O2 Flow Rate FiO2 10/23/18 01:29 98.2 80 14 149/101 (117) 99 Room Air Sp02 EP Interpretation: reviewed, normal General Appearance: well appearing, no apparent distress, alert Head: normocephalic, atraumatic Eyes: bilateral eye PERRL, bilateral eye EOMI ENT: uvula midline, moist mucus membranes Neck: supple, thyroid normal, supple/symm/no masses Respiratory: lungs clear, no respiratory distress, no retraction, no accessory muscle use Cardiovascular #1: normal peripheral pulses, regular rate, rhythm, no edema, no gallop, no murmur Gastrointestinal: non tender, soft, no guarding, no rebound Genitourinary: other - Pratibha RN convex grinder, no CMT, clearish vaginal discharge, no adnexal tenderness, no evidence of cervicitis Musculoskeletal: normal inspection Neurologic: alert, oriented x3 Psychiatric: mood/affect normal Skin: no rash, warm/dry Medical Decision Making Diagnostic Impression: Primary Impression: BV (bacterial vaginosis) ER Course Sent wet prep, and test for G/C Patient most likely with bacterial vaginosis will discharge patient Counseled patient to follow-up with gynecology Last Vital Signs Date Time Temp Pulse Resp B/P (MAP) Pulse Ox O2 Delivery O2 Flow Rate FiO2 10/23/18 01:30 98.2 80 14 149/101 99 Room Air Disposition: HOME, SELF-CARE Condition: Stable Scripts Metronidazole* (FLAGYL*) 500 Mg Tablet 500 MG ORAL BID for 7 Days, #14 TAB Prov: Garret Salazar MD 10/23/18 Referrals: [facility],REFERRING (PCP) [facility] Anirudh Kaplan. [facility] Patient Instructions: Bacterial Vaginosis, [id number] Additional Instructions: The patient was provided with discharge instructions, notified to follow-up with a primary care doctor and or specialist in the next 24-48 hours, and to return to the ED if they have worsening of their symptoms. Please note that this report is being documented using [employer] technology. This can lead to erroneous entry secondary to incorrect interpretation by the dictating instrument. Garret Salazar MD Oct 23, 2018 02:07
[2018-10-23] MEDS ORDERED: METRONIDAZOLE500 MG ORAL (02:09)
[2018-10-23 02:10] VITALS: BP 149/101
--- NOTE | 2018-10-23 02:10 | NUR ---
ER DISCHARGE NOTE: Patient is cleared to be discharged per ERMD, pt is aox4, on room air, with stable vital signs. pt was given dc and prescription instructions, pt was able to verbalize understanding, pt id band removed. pt is able to ambulate with steady gait. pt took all belongings.
[2018-10-23] MEDS ORDERED: FLUCONAZOLE100 MG ORAL (02:15)
== END 2018-10-23 02:10 | disposition home or self-care (01) ==
LOC: EMR 01:29
DX: N76.0 Acute vaginitis (principal)
CPT/HCPCS: 81025; 87210; 87491; 87590; Z7502; 99283